=== PATIENT | male | born 1995 | race Caucasian/White ===

== ENCOUNTER 2021-02-22 10:11 | Emergency (ER) | payer SELFPAY ==
[2021-02-22 10:17] VITALS: BP 141/70; PULSE 88; RESP 20; TEMP 36.3; O2SAT 97; BMI 24.2
--- NOTE | 2021-02-22 10:33 | ED.GENADULT ---
HPI - General Adult General Chief complaint: General Medical Stated complaint: tick bite Time Seen by Provider: 02/22/21 10:20 Source: patient Mode of arrival: ambulatory Limitations: no limitations History of Present Illness HPI narrative: 25 y/o male presenting with a wound to the inside of his left foot after he was bit by a tick 2 days ago. He reports being at an outdoor fire and then the next morning he found a tick on his foot. He reports the tick was there for <24 hours. He dug into the area and removed the tick. He scratched the area and now has a wound about the size of a quarter. He reports increased redness and pain this morning. He has no fever, chills, rash or leg pain. MD complaint: tick bite Onset (ago): day(s) (2) Location: lower extremity Radiation: non-radiation Severity: mild Quality: aching Pain Consistency: intermittent Relieving factors: none Exacerbating factors: movement Associated symptoms: denies other symptoms Treatments prior to arrival: none Related Data Previous Rx's Medication Instructions Recorded cephalexin 500 mg PO Q8H 7 Days #21 cap 02/22/21 Allergies Allergy/AdvReac Type Severity Reaction Status Date / Time No Known Allergies Allergy Verified 02/22/21 10:20 Review of Systems Review of Systems: Constitutional: No Fever, No Chills Gastrointestinal: No Nausea, No Vomiting Musculoskeletal: No joint pain, No Myalgias Skin: + Skin Lesions, No rash Psych: No Anxiety/Panic, No Depression Heme/Lymph: No Bruising, No Lymphadenopathy PMFSH Past Medical History Attestation statement: The following information was validated with the patient. Medical History No known health problems Social History Social History Advance Directives: Yes Advance Directives Information Provided: Yes Advance Directives on File: No Physical Exam Vital Signs: Vital Signs: Last Vital Signs Temp 97.4 F 02/22/21 10:17 Pulse 88 02/22/21 10:17 Resp 20 02/22/21 10:17 BP 141/70 H 02/22/21 10:17 Pulse Ox 97 02/22/21 10:17 Body Mass Index 24.2 Appearance: Alert. Oriented X3. No acute distress. HEENT: normal inspection CVS: Normal heart rate and rhythm. Pulses normal. Respiratory: No respiratory distress. Skin: Skin warm and dry. Normal skin color. Normal skin turgor. No rashes. Extremities: medial aspect of left ankle with a 2cm superficial abrasion with surrounding erythema. No FB or tick impeded in the wound. No target lesion. NV intact distally. No calf tenderness Neuro: Oriented X 3. No motor deficit. No sensory deficit. Course Course Course Narrative: 25 y/o male presenting with a would to his left medial ankle after he removed a tick and scratched at the area. Tick was on for <24 hours. Wound is consistent with mild cellulitis. Area was cleaned and antibiotic ointment applied. Will give ppx dose Doxycycling 200 mg x1 and treat with Keflex for cellulitis. Advised to f/u with PCP or come back to the ER if area worsens. Stable for d/c. Patient was counseled. Critical Care Time Critical Care Time Critical Care Time: No Discharge Plan Discharge Clinical Impression: Tick bite of left foot Qualifiers: Encounter type: initial encounter Qualified Code(s): S90.862A - Insect bite (nonvenomous), left foot, initial encounter Patient Disposition: Home, Self-Care Instructions: Tick Bite (ED) Additional Instructions: You were treated with an antibiotic today in the ER to help prevent Lyme disease. You are being started on a different antibiotic to treat the skin infection around your tick bite. Use antibiotic ointment on the bite 2 times per day. Use warm compresses to the area several times per day. If you notice the redness gets bigger or does not go away with treatment, come back to the ER or call your doctor. Prescriptions: New cephalexin 500 mg capsule 500 mg PO Q8H 7 Days Qty: 21 RF: 0
[2021-02-22] MEDS: cephALEXin 500 MG CAPSULE PO (10:39)
== END 2021-02-22 10:44 | disposition home or self-care (01) ==
LOC: HO.ED 10:39
PROVIDERS: Emergency Provider Emergency Medicine; PCP Pediatrics
DX: T63.481A Toxic effect of venom of other arthropod, accidental (unintentional), initial encounter (principal); M79.672 Pain in left foot; Y92.9 Unspecified place or not applicable; Z79.899 Other long term (current) drug therapy
CPT/HCPCS: 99283